=== PATIENT | female | born 1955 | race Caucasian/White ===

== ENCOUNTER 2019-02-17 04:52 | Emergency (ER) | payer OTHER ==
[~2019-02-17] VITALS: Ht 172.7 cm; Wt 70.3 kg
== END 2019-02-17 08:56 | disposition home or self-care (01) ==
LOC: ER 04:52
DX: M54.89 Other dorsalgia (principal)

== ENCOUNTER 2019-10-30 18:55 | Emergency (ER) | payer OTHER ==
[~2019-10-30] VITALS: Ht 172.7 cm; Wt 68.0 kg
== END 2019-10-30 20:49 | disposition home or self-care (01) ==
LOC: ER 18:55
DX: S60.470A Other superficial bite of right index finger, initial encounter (principal); S90.872A Other superficial bite of left foot, initial encounter; W55.01XA Bitten by cat, initial encounter; Y93.89 Activity, other specified; Y92.89 Other specified places as the place of occurrence of the external cause; Y99.8 Other external cause status

== ENCOUNTER 2020-06-26 19:12 | Emergency (ER) | payer OTHER ==
[~2020-06-26] VITALS: Ht 172.7 cm; Wt 71.7 kg
== END 2020-06-26 22:27 | disposition home or self-care (01) ==
LOC: ER 19:12
DX: G89.11 Acute pain due to trauma (principal); R10.32 Left lower quadrant pain; N39.0 Urinary tract infection, site not specified; Z03.818 Encounter for observation for suspected exposure to other biological agents ruled out

== ENCOUNTER 2020-09-21 01:21 | Emergency (ER) | payer OTHER ==
[~2020-09-21] VITALS: Ht 170.2 cm; Wt 79.4 kg
[2020-09-21] MEDS ORDERED: VISTARIL50 MG PO (05:24)
== END 2020-09-21 05:28 | disposition home or self-care (01) ==
LOC: ER 01:21
DX: R00.2 Palpitations (principal); F06.4 Anxiety disorder due to known physiological condition